=== PATIENT | female | born 1985 | race Two or more races ===

== ENCOUNTER 2023-06-04 08:49 | Emergency (ER) | payer OTHER ==
[~2023-06-04] VITALS: Ht 167.6 cm; Wt 86.1 kg
[2023-06-04] MEDS ORDERED: MELO-335 PO (10:05)
[2023-06-04] MEDS ORDERED: CYCL-839 PO (10:05)
[2023-06-04 10:10] VITALS: BP 113/71; PULSE 81; RESP 15; TEMP 98; O2SAT 99
[2023-06-04] MEDS: KETOROLAC TROMETH 60MG/2ML VIAL IM ONE (10:21)
== END 2023-06-04 10:50 | disposition home or self-care (01) ==
LOC: ER 08:49
DX: M54.6 Pain in thoracic spine (principal); Z79.899 Other long term (current) drug therapy; V98.8XXA Other specified transport accidents, initial encounter; Y93.89 Activity, other specified; Y92.89 Other specified places as the place of occurrence of the external cause; Y99.8 Other external cause status
CPT/HCPCS: 96372; 99283; J1885

== ENCOUNTER 2023-10-21 10:30 | Emergency (ER) | payer SELFPAY ==
[~2023-10-21] VITALS: Ht 167.6 cm; Wt 86.2 kg
[~2023-10-21 10:30] MED LIST: CYCL-839 PO; MELO15TA29 PO
[2023-10-21 10:56] LABS: Urine Bacteria None Seen /hpf (None Seen)
[2023-10-21] MEDS: PANTOPRAZOLE 40 MG/10 ML VIAL INJ IV ONE (10:57)
[2023-10-21] MEDS: MORPHINE SULFATE 4 MG/ML SYR/VIAL IV ONE (11:04)
[2023-10-21] MEDS: PROCHLORPERAZINE EDISYLATE 5 MG/ML 2ML VIAL IV ONE (11:05)
[2023-10-21] MEDS: SODIUM CHLORIDE 0.9% 1,000 ML IVB ONE (11:08)
[2023-10-21 11:25] LABS: Basophils # (auto) 0 10 ^3/uL (0-0.2); Basophils % (auto) 0.3 % (0.0-2.0); Eosinophils # (auto) 0 10 ^3/uL (0-0.8); Eosinophils % (auto) 0.1 % (0.0-7.0); Hematocrit 44.6 % (36.0-46.0); Hemoglobin 15.3 g/dL (12.2-16.2); Lymphocytes # (auto) 2.4 10 ^3/uL (0.4-5.4); Lymphocytes % (auto) 25.1 % (10.0-50.0); Mean Corpuscular Hemoglobin 29.2 pg (28.0-32.0); Mean Corpuscular Hgb Conc. 34.3 g/dL (32.0-36.0); Mean Corpuscular Volume 85.2 fL (80.0-100.0); Monocytes # (auto) 0.9 10 ^3/uL (0-1.3); Neutrophils # (auto) 6.4 10 ^3/uL (1.6-8.6); Neutrophils % (auto) 65.5 % (37.0-80.0); Nucleated Red Blood Cells % 0.2 %; Red Blood Cells 5.23 10^6/uL (4.0-5.20); Red Cell Distribution Width 13.8 % (11.8-14.3); White Blood Cell 9.7 10^3/uL (4.4-10.8)
[2023-10-21 11:36] LABS: Alanine Aminotransferase 16 U/L (7-40); Albumin 5.1 g/dL (3.2-4.8); Alkaline Phosphatase 71 U/L (46-116); Anion Gap 10 (5-15); Aspartate Aminotransferase 25 U/L (13-40); BUN/Creatinine Ratio 6.3 (10.0-20.0); Blood Urea Nitrogen 5 mg/dL (9-23); Calcium 10.4 mg/dL (8.7-10.4); Carbon Dioxide 25 mmol/L (20-30); Chloride 102 mmol/L (98-107); Glucose 110 mg/dL (74-106); Lipase 31 U/L (12-53); Potassium 3.2 mmol/L (3.5-5.1); Sodium 137 mmol/L (136-145)
[2023-10-21 11:37] LABS: Bilirubin, Total 0.6 mg/dL (0.2-1.0); Total Protein 7.9 g/dL (5.7-8.2)
[2023-10-21 11:38] LABS: Urine Blood 3+ /uL (Negative); Urine Clarity Turbid (Clear); Urine Mucus FEW (None Seen); Urine Protein, UAD 1+ (Negative); Urine Specific Gravity 1.019 (1.001-1.035); Urine Urobilinogen Normal (Negative); Urine WBC 11 /hpf (0 - 5); Urine pH 6.5 (5.0-9.0)
[2023-10-21 11:39] LABS: Urine Color Light-Yellow (Yellow)
[2023-10-21 11:42] LABS: Amphetamine Screen, Urine Neg (NEGATIVE); Barbiturate Scree,Urine Neg (NEGATIVE); Benzodiazephine Screen, Urine Neg (NEGATIVE); Cannabinoid Screen, Urine Pos (NEGATIVE); Cocaine Screen, Urine Neg (NEGATIVE); Opiate Scree,Urine Neg (NEGATIVE); Phencyclidine Screen, Urine Neg (NEGATIVE)
[2023-10-21 11:53] VITALS: PULSE 74; RESP 15; O2SAT 96
[2023-10-21 12:05] VITALS: BP 132/65; PULSE 73; RESP 15; TEMP 97.3; O2SAT 97
[2023-10-21] MEDS ORDERED: ZOFR4T PO (12:05)
[2023-10-21] MEDS ORDERED: PANT40TA2 PO (12:05)
== END 2023-10-21 12:16 | disposition home or self-care (01) ==
LOC: ER 10:30
DX: R11.10 Vomiting, unspecified (principal); R10.2 Pelvic and perineal pain; G44.89 Other headache syndrome; F12.90 Cannabis use, unspecified, uncomplicated; Z88.8 Allergy status to other drugs, medicaments and biological substances; Z88.6 Allergy status to analgesic agent; Z79.899 Other long term (current) drug therapy
CPT/HCPCS: 36415; 76705; 80053; 80307; 81001; 83690; 84702; 85025; 96361; 96374; 96375; 99285; J0780; J2270; J7030